=== PATIENT | male | born 1990 | race Caucasian/White ===

== ENCOUNTER 2020-08-13 19:43 | Emergency (ER) | payer MEDICAID ==
[~2020-08-13] VITALS: Ht 172.7 cm; Wt 97.5 kg
[2020-08-13 19:47] VITALS: BP 146/76
--- NOTE | 2020-08-13 19:51 | NUR ---
PT AMBULATED TO ER BED 07
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
--- NOTE | 2020-08-13 19:55 | NUR ---
ERMD AT BEDSIDE EVALUATING PT
[2020-08-13] MEDS ORDERED: LIDOCAINE 2% 1000 MG/50 ML VIAL INJ ONE (20:00)
--- NOTE | 2020-08-13 20:00 | NUR ---
Patient has a 2.5 cm laceration to LEFT INDEX FINGER. Dr. CORADO applied sutures using sterile technique. Edges well approximated. Site cleansed with IODINE. No bleeding noted. Pt tolerated well.
[2020-08-13 20:29] VITALS: BP 146/76
--- NOTE | 2020-08-13 20:29 | NUR ---
Patient discharged with v/s stable. Written and verbal after care instructions given and explained. Patient alert, oriented and verbalized understanding of instructions. Ambulatory with steady gait. All questions addressed prior to discharge. ID band removed. Patient advised to follow up with PMD. Rx of MOTRIN AND NEOSPORIN given. Patient educated on indication of medication including possible reaction and side effects. Opportunity to ask questions provided and answered.
== END 2020-08-13 20:29 | disposition home or self-care (01) ==
LOC: MED 19:43
DX: S61.211A Laceration without foreign body of left index finger without damage to nail, initial encounter (principal); W26.8XXA Contact with other sharp object(s), not elsewhere classified, initial encounter; Y93.89 Activity, other specified; Y92.89 Other specified places as the place of occurrence of the external cause; Y99.8 Other external cause status
CPT/HCPCS: 12001; 99282; J2001